=== PATIENT | male | born 1995 | race Hispanic/Latino ===

== ENCOUNTER 2018-10-26 20:45 | Emergency (ER) | payer SELFPAY ==
[2018-10-26 21:25] LABS: Absolute Lymphocytes (CBC) 3.1 K/uL (0.7-4.9); Absolute Monocytes 0.5 K/uL (0.1-1.3); Absolute Neutrophil 6.6 K/uL (1.8-8.0); Basophils % 0.7 % (0-1.3); Eosinophils % 1.4 % (0-4.4); Hematocrit 42.8 % (39.6-49.0); Lymphocytes % 29.3 % (15.3-44.8); MPV 9.4 fL (7.6-11.3); Monocytes % 5.2 % (3.3-12.3); RBC Red Blood Cell Count 5.11 M/uL (4.33-5.43)
[2018-10-26] MEDS ORDERED: ONDANSETRON 4 MG/2 ML VIAL ONE (21:36)
[2018-10-26] MEDS ORDERED: MECLIZINE HCL 12.5 MG TAB ONE (21:36)
[2018-10-26 21:44] LABS: ALT/SGPT 31 U/L (12-78); AST/SGOT 18 U/L (15-37); Albumin 3.9 g/dL (3.4-5.0); Alkaline Phosphatase 56 U/L (45-117); BUN Blood Urea Nitrogen 19 mg/dL (7-18); Bicarbonate 25 mmol/L (21-32); Bilirubin Direct < 0.1 mg/dL (0-0.2); Bilirubin Total 0.3 mg/dL (0.2-1.0); Glucose Level 116 mg/dL (74-106); Lipase 173 U/L (73-393); Potassium 3.5 mmol/L (3.5-5.1); Protein, Total 7.2 g/dL (6.4-8.2); Sodium Level 142 mmol/L (136-145)
[2018-10-26] MEDS ORDERED: NA CHLORIDE 0.9% 1,000 ML ONE (22:18)
--- NOTE | 2018-10-26 22:24 | EDPHYS ---
Physician Documentation [facility] Name: Indio Saenz Age: 23 yrs Sex: Male : 1995 Arrival Date: 10/26/2018 Time: 20:48 Bed 13 Private MD: None, None ED Physician Dylan Doshi HPI: 10/26 21:00 This 23 yrs old Male presents to ER via Ambulatory with complaints of jmm Dizziness, Nausea. 21:00 The patient presents with sense of spinning. Onset: The symptoms/episode began/occurred jmm acutely, 4 day(s) ago. Associated signs and symptoms: Pertinent negatives: chest pain, sob. 21:00 This is a 23 year old male with no chronic medical conditions presents to the ED with jmm complaints of intermittant episodes of dizziness while walking or changing position. Patient denies chest pain, denies shortness of breath. Symptoms are relieved by lying still. Patient denies similar symptoms in the past. . Historical: - Allergies: 20:55 No Known Allergies; tl2 - Home Meds: 20:55 None [Active]; tl2 - PMHx: 20:55 None; tl2 - PSHx: 20:55 None; tl2 - Immunization history:: Adult Immunizations up to date. - Social history:: Smoking status: Patient uses tobacco products, denies chronic smoking, but will smoke occasionally. - Ebola Screening: : No symptoms or risks identified at this time. ROS: 21:00 Constitutional: Negative for fever, chills, and weight loss, Cardiovascular: Negative jmm for chest pain, palpitations, and edema, Respiratory: Negative for shortness of breath, cough, wheezing, and pleuritic chest pain. 21:00 Neuro: Positive for dizziness. 21:00 All other systems are negative. Exam: 21:00 Constitutional: This is a well developed, well nourished patient who is awake, alert, jmm and in no acute distress. Head/Face: atraumatic. Eyes: EOMI, no conjunctival erythema appreciated ENT: Moist Mucus Membranes Neck: Trachea midline, Supple Chest/axilla: Normal chest wall appearance and motion. Cardiovascular: Regular rate and rhythm. No edema appreciated 21:00 Abdomen/GI: Non distended, soft Back: Normal ROM Skin: General appearance color normal MS/ Extremity: Moves all extremities, no obvious deformities appreciated, no edema noted to the lower extremities Neuro: Awake and alert, normal gait 21:00 Eyes: Nystagmus: fatigable nystagmus on gaze to the right. 21:00 Neuro: Orientation: is normal, Mentation: is normal, Memory: is normal, Cerebellar function: normal finger to nose testing, heel to joy testing is normal, Motor: is normal. 21:00 Psych: Behavior/mood is pleasant, cooperative. Vital Signs: 20:55 BP 104 / 66; Pulse 96; Resp 18; Pulse Ox 99% on R/A; Weight 94.8 kg; Height 5 ft. 9 in. tl2 (175.26 cm); Pain 0/10; 21:00 Temp 99.1(O); jb4 22:18 BP 120 / 82; Pulse 67; Resp 16; Pulse Ox 99% on R/A; jb4 20:55 Body Mass Index 30.86 (94.80 kg, 175.26 cm) tl2 MDM: 21:00 Patient medically screened. [facility] 22:18 Data reviewed: vital signs, nurses notes. Counseling: I had a detailed discussion with sergio the patient and/or guardian regarding: the historical points, exam findings, and any diagnostic results supporting the discharge/admit diagnosis, lab results, radiology results, the need for outpatient follow up, to return to the emergency department if symptoms worsen or persist or if there are any questions or concerns that arise at home. ED course: Patient's symptoms relieved in the ED. Normal cerebellar exam. Normal gait. CT negative. EKG shows no qt prolongation. Patient is advised to follow up with neuro and ent for further evaluation. patient otherwise given strict return precautions. symptoms appear more likely peripheral . 10/26 21:00 Order name: Basic Metabolic Panel; Complete Time: 22:02 [facility] 10/26 21:00 Order name: CBC with Diff; Complete Time: 21:35 [facility] 10/26 21:00 Order name: Creatinine for Radiology; Complete Time: 22: [facility] 10/26 21:00 Order name: Hepatic Function; Complete Time: 22: [facility] 10/26 21:00 Order name: Lipase; Complete Time: 22:02 [facility] 10/26 21:00 Order name: CT Head Brain wo Cont [facility] 10/26 21:00 Order name: IV Saline Lock; Complete Time: 21:18 [facility] 10/26 21:00 Order name: Labs collected and sent; Complete Time: 21:18 [facility] 10/26 21:00 Order name: EKG - Nurse/Tech; Complete Time: : [facility] Administered Medications: 21:39 Drug: Meclizine 50 mg Route: PO; jb4 23:10 Follow up: Response: No adverse reaction jb4 22:27 Drug: NS 0.9% 1000 ml Route: IV; Rate: 1 bolus; Site: right antecubital; jb4 23:10 Follow up: Response: No adverse reaction; IV Status: Completed infusion jb4 22:28 Not Given (Patient Refused): Zofran 4 mg IVP once; over 2 minutes jb4 Disposition: 10/27 01:24 Co-signature as Attending Physician, Dylan Doshi MD. rn Disposition: 10/26/18 22:23 Discharged to Home. Impression: Dizziness and giddiness. - Condition is Stable. - Discharge Instructions: Benign Positional Vertigo, Dizziness. - Prescriptions for Meclizine 25 mg Oral Tablet - take 1 tablet by ORAL route every 8 hours As needed; 30 tablet. - Medication Reconciliation Form, Thank You Letter, Antibiotic Education, Prescription Opioid Use form. - Follow up: Aston Fox MD; When: 2 - 3 days; Reason: Recheck today's complaints, Continuance of care, Re-evaluation by your physician. Follow up: Esthela Fajardo MD; When: 2 - 3 days; Reason: Recheck today's complaints, Continuance of care, Re-evaluation by your physician. Signatures: Dispatcher [employer] EDOK Agustin Dalal PA PA jmm Nieto, Roman, MD MD rn Knox, Taylor, RN RN tl2 Bartolo Fragoso RN RN jb4 Corrections: (The following items were deleted from the chart) 10/26 23:11 22:23 10/26/2018 22:23 Discharged to Home. Impression: Dizziness and giddiness. jb4 Condition is Stable. Forms are Medication Reconciliation Form, Thank You Letter, Antibiotic Education, Prescription Opioid Use. Follow up: Aston Fox; When: 2 - 3 days; Reason: Recheck today's complaints, Continuance of care, Re-evaluation by your physician. Follow up: Esthela Fajardo; When: 2 - 3 days; Reason: Recheck today's complaints, Continuance of care, Re-evaluation by your physician. sergio
--- NOTE | 2018-10-26 22:24 | ER ---
Nurse's Notes [facility] Name: Indio Saenz Age: 23 yrs Sex: Male : 1995 Arrival Date: 10/26/2018 Time: 20:48 Bed 13 Private MD: None, None Diagnosis: Dizziness and giddiness Presentation: 10/26 20:54 Presenting complaint: Patient states: dizziness that started 4 days ago. Pt feels off tl2 balance when walking and closing eyes make it feel like the room is spinning. Denies headache. Pt reports 1 episode of vomiting. Transition of care: patient was not received from another setting of care. Onset of symptoms was October 22, 2018. Risk Assessment: Do you want to hurt yourself or someone else? Patient reports no desire to harm self or others. Initial Sepsis Screen: Does the patient meet any 2 criteria? No. Patient's initial sepsis screen is negative. Does the patient have a suspected source of infection? No. Patient's initial sepsis screen is negative. Care prior to arrival: None. 20:54 Method Of Arrival: Ambulatory tl2 20:54 Acuity: [place] 3 tl2 Historical: - Allergies: 20:55 No Known Allergies; tl2 - Home Meds: 20:55 None [Active]; tl2 - PMHx: 20:55 None; tl2 - PSHx: 20:55 None; tl2 - Immunization history:: Adult Immunizations up to date. - Social history:: Smoking status: Patient uses tobacco products, denies chronic smoking, but will smoke occasionally. - Ebola Screening: : No symptoms or risks identified at this time. Screenin:56 Abuse screen: Denies threats or abuse. Nutritional screening: No deficits noted. tl2 Tuberculosis screening: No symptoms or risk factors identified. Fall Risk. Assessment: 21:05 General: Appears in no apparent distress. comfortable, Behavior is calm, cooperative, jb4 appropriate for age. Pain: Denies pain. Neuro: Level of Consciousness is awake, alert, obeys commands, Oriented to person, place, time, situation. Cardiovascular: Patient's skin is warm and dry. Respiratory: Airway is patent Respiratory effort is even, unlabored, Respiratory pattern is regular, symmetrical. GI: Abdomen is flat, non-distended, Reports nausea. : No signs and/or symptoms were reported regarding the genitourinary system. EENT: No signs and/or symptoms were reported regarding the EENT system. Derm: Skin is intact, Skin is pink, warm \T\ dry. Musculoskeletal: Circulation, motion, and sensation intact. 22:29 Reassessment: Patient appears in no apparent distress at this time. Patient and/or jb4 family updated on plan of care and expected duration. Pain level reassessed. Patient is alert, oriented x 3, equal unlabored respirations, skin warm/dry/pink. Waiting for fluids to finish before discharge. Patient states feeling better. Vital Signs: 20:55 BP 104 / 66; Pulse 96; Resp 18; Pulse Ox 99% on R/A; Weight 94.8 kg; Height 5 ft. 9 in. tl2 (175.26 cm); Pain 0/10; 21:00 Temp 99.1(O); jb4 22:18 BP 120 / 82; Pulse 67; Resp 16; Pulse Ox 99% on R/A; jb4 20:55 Body Mass Index 30.86 (94.80 kg, 175.26 cm) tl2 ED Course: 20:48 Patient arrived in ED. mr 20:49 None, None is Private Physician. mr 20:51 Agustin Dalal PA is PHCP. [facility] 20:51 Dylan Doshi MD is Attending Physician. [facility] 20:55 Triage completed. tl2 20:55 Arm band placed on right wrist. tl2 21:05 Patient has correct armband on for positive identification. Bed in low position. Call jb4 light in reach. Side rails up X 1. Pulse ox on. NIBP on. 21:07 Bartolo Fragoso RN is Primary Nurse. jb4 21:13 Initial lab(s) drawn, by md, sent to lab. Inserted saline lock: 20 gauge in right jb4 antecubital area, using aseptic technique. Blood collected. 22:21 Aston Fox MD is Referral Physician. [facility] 22:21 Esthela Fajardo MD is Referral Physician. [facility] 22:24 EKG done, by ED staff, reviewed by Agustin BLANK. ag4 23:11 No provider procedures requiring assistance completed. IV discontinued, intact, jb4 bleeding controlled. 10/27 10:06 CT Head Brain wo Cont In Process Unspecified. EDMS Administered Medications: 10/26 21:39 Drug: Meclizine 50 mg Route: PO; jb4 23:10 Follow up: Response: No adverse reaction jb4 22:27 Drug: NS 0.9% 1000 ml Route: IV; Rate: 1 bolus; Site: right antecubital; jb4 23:10 Follow up: Response: No adverse reaction; IV Status: Completed infusion jb4 22:28 Not Given (Patient Refused): Zofran 4 mg IVP once; over 2 minutes jb4 Outcome: 22:23 Discharge ordered by . sergio 23:11 Discharged to home ambulatory, with friend. jb4 23:11 Condition: stable 23:11 Discharge instructions given to patient, friend, Instructed on discharge instructions, follow up and referral plans. medication usage, Demonstrated understanding of instructions, follow-up care, medications, Prescriptions given X 1. 23:11 Patient left the ED. jb4 Signatures: Dispatcher [employer] EDMS Agustin Dalal PA PA jmm Rivera, Mary mr Knox, Taylor, RN RN tl2 Bartolo Fragoso RN RN jb4 Ismael Lovell 4
--- NOTE | 2018-10-27 12:35 | EKG ---
Test Date: 2018-10-26 Test Time: 21:17:49 Sand Plant Attendant: AG3 MEASUREMENT RESULTS: Intervals: Rate: 91 CO: 138 QRSD: 82 QT: 338 QTc: 415 [place]: P: 55 CO: 138 QRS: 52 T: 44 INTERPRETIVE STATEMENTS: Normal sinus rhythm with sinus arrhythmia Cannot rule out Anterior infarct, age undetermined Abnormal ECG No previous ECG available for comparison Electronically Signed On 10-27-18 12:34:40 MEMS DEVICE SCIENTIST by Fabrice Botello
--- NOTE | 2018-10-28 11:32 | RAD REPORT ---
EXAM DESCRIPTION: CT - Head Brain Wo Cont - 10/27/2018 10:47 am CLINICAL HISTORY: 23 years Male, DIZZINESS TECHNIQUE: 5 mm axial images were obtained along with 3 mm reformatted coronal and sagittal images. This exam was performed according to our departmental dose-optimization program, which includes autom ated exposure control, adjustment of the mA and/or kV according to patient size and/or use of iterati ve reconstruction technique. COMPARISON: None. FINDINGS: No acute abnormal extracerebral fluid collections are demonstrated. The cortical sulci, ventricles, and cisterns are within normal limits. There are no areas of altered attenuation identified to suggest acute hemorrhage, infarction, or mass lesion. The visualized portions of the paranasal sinuses and mastoid air cells are clear. IMPRESSION: 1. Normal study. Electronically signed by: Quentin Weiner MD 10/26/2018 10:02 PM TABULATING SUPERVISOR Due to temporary technical issues with the PACS/Fluency reporting system, reports are being signed by the in house radiologist as a courtesy to ensure prompt reporting. The interpreting radiologist is f ully responsible for the content of the report.
== END 2018-10-26 23:11 | disposition home or self-care (01) ==
LOC: ER 20:45
DX: R42 Dizziness and giddiness (principal); R11.0 Nausea; Z72.0 Tobacco use
CPT/HCPCS: 36415; 70450; 80048; 80076; 83690; 85025; 93005; 96360; 99284; J2405; J7030